=== PATIENT | female | born 1970 | race Caucasian/White ===

== ENCOUNTER 2021-02-04 12:27 | Day surgery (SDC) | payer OTHER ==
[2021-02-02 13:18] VITALS: BMI 29.5
[2021-02-04] MEDS ORDERED: LIDOCAINE HCL 2% (20ML MULTI-DOSE VIAL) ONE (13:59)
[2021-02-04] MEDS ORDERED: MIDAZOLAM HCL 2 MG/2 ML SINGLE DOSE VIAL ONE (15:21)
[2021-02-04] MEDS ORDERED: PROPOFOL 20 ML ONE ×2 (15:29)
[2021-02-04] MEDS ORDERED: KETOROLAC TROMETHAMINE 30 MG/1 ML VIAL ONE (15:30)
[2021-02-04] MEDS ORDERED: DEXAMETHASONE SOD PHOSPHATE 4 MG/1 ML VIAL ONE (15:30)
[2021-02-04] MEDS ORDERED: ONDANSETRON 4 MG/2 ML VIAL ONE (15:30)
[2021-02-04] MEDS ORDERED: BUPIVACAINE HCL/PF 0.25% (2.5MG/ML) 10 ML VIAL IJ ONE ×2 (16:08→16:16)
[2021-02-04] MEDS ORDERED: oxyCODONE HCL 5 MG TABLET PO PRN ×2 (16:33)
[2021-02-04] MEDS ORDERED: ONDANSETRON 4 MG/2 ML VIAL IVPUSH PRN (16:33)
[2021-02-04] MEDS ORDERED: PROMETHAZINE HCL 25 MG/1 ML VIAL IVPUSH PRN (16:33)
[2021-02-04] MEDS ORDERED: oxyCODONE HCL 5 MG TABLET ONE (17:06)
[2021-02-04 17:57] VITALS: TEMP 97.8
[2021-02-04 18:02] VITALS: BP 116/67; PULSE 65
== END 2021-02-04 17:45 | disposition home or self-care (01) ==
LOC: FASU 12:27
PROVIDERS: ATTEND Orthopaedic Surgery Hand Surgery
PROC: 01N40ZZ Release Ulnar Nerve, Open Approach (ICD-10-PCS; 2021-02-04)
PROC: 01N50ZZ Release Median Nerve, Open Approach (ICD-10-PCS; principal; 2021-02-04 15:47)
DX: G56.02 Carpal tunnel syndrome, left upper limb (principal); G56.22 Lesion of ulnar nerve, left upper limb
CPT/HCPCS: 84703; 94760